=== PATIENT | male | born 1995 | race African-American/Black ===

== ENCOUNTER 2024-03-09 13:15 | Emergency (ER) | payer SELFPAY ==
[2024-03-09 13:19] VITALS: BP 114/77
[2024-03-09 14:04] LABS: % Basophils 0.5 % (0-2); % Eosinophils 2.5 % (0-6); % Immature Granulocytes 0.2 % (0-0.5); % Lymphocytes 27.3 % (20.5-51.1); % Monocytes 5.5 % (1.7-9.3); Absolute Basophils 0.1 10^3/uL (0-0.2); Absolute Eosinophils 0.2 10^3/uL (0-0.7); Absolute Lymphocytes 2.5 10^3/uL (1.2-3.4); Absolute Monocytes 0.5 10^3/uL (0.1-0.6); Hematocrit 41.4 % (39.0-52.0); Mean Corp Hgb Conc. 36.2 g/dL (33.0-37.0); Mean Corpuscular Hgb 30.1 pg (27.0-31.0); Mean Platelet Volume 11.2 fL (7.4-10.4); Nucleated Red Blood Cells % 0 % (-); Platelet Count 265 10^3/uL (130-400); Red Blood Cell Count 4.99 10^6/uL (4.70-6.10); Red Cell Dist. Width 12.5 % (11.5-14.5); White Blood Cell Count 9.3 10^3/uL (4.8-10.8)
[2024-03-09 14:22] LABS: ALT (SGPT) 29 U/L (0-50); AST (SGOT) 35 U/L (17-59); Albumin 4.7 g/dl (3.5-5.0); Alkaline Phosphatase 85 U/L (38-126); Blood Urea Nitrogen 17 mg/dl (9-20); Calcium 9.5 mg/dl (8.4-10.2); Carbon Dioxide 29 mmol/L (22-30); Chloride 103 mmol/L (98-107); Glucose 98 mg/dl (70-99); Lipase 58 U/L (23-300); Potassium 5.4 mmol/L (3.5-5.1); Sodium 140 mmol/L (135-145); Total Bilirubin 0.4 mg/dl (0.2-1.3); Total Protein 7.4 g/dl (6.3-8.2); eGFR > 60.00
[2024-03-09 14:24] VITALS: BMI 22.6
[2024-03-09 14:30] LABS: Urine Albumin Negative (Neg - Trace); Urine Bilirubin Negative (Negative); Urine Character Clear (Clear); Urine Color Yellow; Urine Glucose Negative (Negative); Urine Ketone Negative (Negative); Urine Leukocyte Negative (Negative); Urine Nitrite Negative (Negative); Urine Occult Blood Negative (Negative); Urine Urobilinogen Negative (Neg - 1+)
[2024-03-09] MEDS: OMNIPAQUE 50 ML PO (14:32)
[2024-03-09] MEDS: TORADOL 15 MG IV (14:33)
[2024-03-09] MEDS: NSS 1000 IV (14:36)
--- NOTE | 2024-03-09 14:42 | ED.GENMED ---
History of Present Illness
<Venkat Dueñas Jr., PA-C - Last Filed: 03/10/24 09:51>
General
Chief Complaint: Abdominal Symptoms
Source: patient
Exam Limitations: none
Time Seen by Provider: 03/09/24 13:47
Nursing documentation reviewed up to this point in time: agreed with
Travel History
Have you had any contact with someone who has COVID-19?: No
Do you have any symptoms of coronavirus? Fever > 100 degrees, chills, cough, shortness of breath, sore throat, loss of taste or smell, muscle aches, or headache?: No
History of Present Illness
History of Present Illness:
29-year-old male past medical history of anxiety presenting to the emergency department today with concerns of right lower quadrant abdominal pain worsening throughout the day today has had some mild nausea no vomiting does feel some
lightheadedness. Denies similar symptoms in the past no history of surgeries. No fevers.
Review of Systems
<Venkat Dueñas Jr., PA-C - Last Filed: 03/10/24 09:51>
Review of Systems
Allergies reviewed?: Yes
All Other Systems: ROS reviewed and negative except as documented in HPI and ROS
Phy Exam
<Venkat Dueñas Jr., PA-C - Last Filed: 03/10/24 09:51>
Physical Exam
Physical Exam:
GENERAL: Alert , in no apparent distress
EYE: pupils equal and reactive
NECK: Supple, no significant adenopathy.
ENT: o/p clr, mmm.
CARDIAC: Regular rate and rhythm .
LUNGS: Clear breath sounds bilaterally, no acute respiratory distress, no wheezes/rales/rhonchi
ABDOMEN: Right lower quad abdominal pain otherwise soft benign
NEUROLOGICAL: Alert and oriented, no focal neuro deficits
SKIN: Warm and dry, skin intact.
MUSCULOSKELETAL: No edema, well perfused.
PSYCH: Normal and appropriate interaction.
Course
<Venkat Dueñas Jr., PA-C - Last Filed: 03/10/24 09:51>
Orders/Labs/Results
Orders:
Orders
03/09/24 13:22
EKG- Treatment ONCE
03/09/24 13:36
Complete Blood Count/With Diff Urgent
Comprehensive Metabolic Panel Urgent
Lipase Urgent
Urinalysis Reflex To Culture Urgent
Date Specimen was Collected: 03/09/24
Time Specimen was Collected: 13:22
03/09/24 13:49
CT Abd/pel W Iv And Oral Contr Urgent
Comment:
Reason For Exam: rlq pain
Iohexol [Omnipaque] See Protocol PO NOW STA
Ketorolac [Toradol] 15 mg IV NOW STA
03/09/24 13:50
0.9% Sodium Chloride 1000 ml [Nss] 1,000 ml IV BOLUS
Abnormal Lab Results
03/09/24
13:36
MPV 11.2 H fL
(7.4-10.4)
Potassium 5.4 H mmol/L
(3.5-5.1)
03/09/24 13:36
03/09/24 13:36
Vital Signs
Initial and Last Documented VS:
Initial Vital Signs
Temp Pulse Resp BP Pulse Ox
98.7 F 121 18 114/77 100
03/09/24 13:19 03/09/24 13:19 03/09/24 13:19 03/09/24 13:19 03/09/24 13:19
Last Documented Vital Signs
Temp Pulse Resp BP Pulse Ox
98.7 F 76 16 114/78 99
03/09/24 13:19 03/09/24 17:26 03/09/24 17:26 03/09/24 17:26 03/09/24 17:26
<Mesha Santa [employer]MAN[employer]LY[employer] - Last Filed: 03/10/24 17:22>
Orders/Labs/Results
Orders:
Orders
03/09/24 13:22
EKG- Treatment ONCE
03/09/24 13:36
Complete Blood Count/With Diff Urgent
Comprehensive Metabolic Panel Urgent
Lipase Urgent
Urinalysis Reflex To Culture Urgent
Date Specimen was Collected: 03/09/24
Time Specimen was Collected: 13:22
03/09/24 13:49
CT Abd/pel W Iv And Oral Contr Urgent
Comment:
Reason For Exam: rlq pain
Iohexol [Omnipaque] See Protocol PO NOW STA
Ketorolac [Toradol] 15 mg IV NOW STA
03/09/24 13:50
0.9% Sodium Chloride 1000 ml [Nss] 1,000 ml IV BOLUS
Abnormal Lab Results
03/09/24
13:36
MPV 11.2 H fL
(7.4-10.4)
Potassium 5.4 H mmol/L
(3.5-5.1)
03/09/24 13:36
03/09/24 13:36
Vital Signs
Initial and Last Documented VS:
Initial Vital Signs
Temp Pulse Resp BP Pulse Ox
98.7 F 121 18 114/77 100
03/09/24 13:19 03/09/24 13:19 03/09/24 13:19 03/09/24 13:19 03/09/24 13:19
Last Documented Vital Signs
Temp Pulse Resp BP Pulse Ox
98.7 F 76 16 114/78 99
03/09/24 13:19 03/09/24 17:26 03/09/24 17:26 03/09/24 17:26 03/09/24 17:26
<Venkat Dueñas Jr., PA-C - Last Filed: 03/10/24 09:51>
MDM/Problems Addressed
MDM/Problems Addressed:
29-year-old male presenting to the emergency department today with concerns of right lower quadrant abdominal pain worsening throughout the day today. Otherwise vital signs normal patient no distress here patient does have tenderness to palpation
to the right lower quadrant CT scan ordered for further assessment of potential appendicitis.
<Mesha Santa NP - Last Filed: 03/10/24 17:22>
MDM/Problems Addressed
MDM/Problems Addressed:
29-year-old male presenting to the emergency department today with concerns of right lower quadrant abdominal pain worsening throughout the day today. Otherwise vital signs normal patient no distress here patient does have tenderness to palpation
to the right lower quadrant CT scan ordered for further assessment of potential appendicitis.
Received pt from [facility], awaiting CT results only
CT abd/pelvis w IV and PO contrast radiology report read: IMPRESSION:
There is a large amount of stool in the colon consistent with constipation.
There is no free fluid, no free air.
Appendix within normal limits.
The bladder is contracted, likely due to recent meal ingestion.
Oral contrast is not seen within the proximal small bowel loops adjacent to the pancreas. This limits evaluation, no bowel obstruction.
Pt discharge, ambulated out with normal gait. Copy of CT explained and provided to pt.
<Venkat Dueñas Jr., PA-C - Last Filed: 03/10/24 09:51>
*Critical Care Note
Total Time (30-74mins, 75-104mins- exclusive of procedures): Not Applicable
ED Attending Note
<Venkat Dueñas Jr., PA-C - Last Filed: 03/10/24 09:51>
-
Portions of this chart may have been created with voice recognition software.� Occasional wrong word or��sound alike� substitutions may have occurred due to the inherent limitations of voice recognition software.
Discharge Plan
Departure
Patient Disposition: Home (Routine Discharge)
Date of Disposition: 03/09/24
Time of Disposition: 18:05
Patient with high blood pressure during this ER visit?: No
Condition: Good
Discharge Problem:
Abdominal pain, Constipation
Instructions: Constipation, Adult (DC), Abdominal Pain
Referrals:
NONE,* [Family Provider] -
Activity Restrictions/Additional Instructions:
As we discussed, your CT scan showed nothing worrisome, only constipation.
Interventions
Interventions:
*Risk Screen - Suicide Last Done: 03/09/24 13:21
*General Assessment Last Done: 03/09/24 13:21
*Neglect/Abuse Screening Last Done: 03/09/24 13:21
*Nursing Disposition Last Done: 03/09/24 18:44
[facility] Assessment Last Done: 03/09/24 14:30
Discharge Date and Time
Discharge Date/Time: 03/09/24 18:44
Print Language: PORTUGUESE
[2024-03-09 17:26] VITALS: BP 114/78
--- NOTE | 2024-03-09 18:44 | EDRN ---
Info given for [facility].
== END 2024-03-09 18:44 | disposition home or self-care (01) ==
LOC: EMR 13:15
PROVIDERS: Emergency Medicine; EMERGENCY PHYSICIAN Emergency Medicine
DX: K59.00 Constipation, unspecified (principal); R10.31 Right lower quadrant pain; R42 Dizziness and giddiness; F41.9 Anxiety disorder, unspecified
CPT/HCPCS: 99285; 96361; 96374; 74177; 80053; 81003; 83690; 85025; Q9967